=== PATIENT | male | born 1980 | race Caucasian/White ===

== ENCOUNTER 2023-03-27 21:25 | Emergency (ER) | payer BC, MEDICAID, SELFPAY ==
[2023-03-27 21:32] VITALS: BP 139/88; PULSE 97; RESP 18; TEMP 36.6; O2SAT 96; BMI 19.2
--- NOTE | 2023-03-27 21:51 | ED.C_ITS ---
Documented by User: Juve Melendez MD 03/27/23 21:55 HPI - Psych General: Stated Complaint: withdrawl/ MHE Time Seen by Provider: 03/27/23 21:39 Source: patient Mode of arrival: ambulatory Limitations: no limitations History of Present Illness: 42-year-old male states he has been on a 3-day meth binge states he is also used some acid states he has not used any today but has been having some hallucinations and has been feeling extremely suicidal states he had a gun to his mouth earlier and states he does have a plan of shooting himself to kill himself he states that this evening he became scared that he was going to do it and wants to get help. Associated symptoms: Reports auditory hallucinations, depression and suicidal ideation Review of Systems Const: Denies: fever(s), chills, body aches or change in appetite Eyes: Denies: blurry vision or eye discomfort ENMT: Denies: throat pain or dental pain Card: Denies: chest pain Resp: Denies: dyspnea GI: Denies: abdominal pain, nausea, vomiting or diarrhea Musc: Denies: neck pain or back pain Skin/Breast: Denies: rash Neuro: Denies: headache(s) Psych: Reports: depression, auditory hallucinations and suicidal ideation Physical Exam Const: COMMON NORMALS: no acute distress, patient oriented x3 and healthy appearing HENMT: COMMON NORMALS: normocephalic and atraumatic HEAD & SCALP: normocephalic and atraumatic Eye: COMMON NORMALS: Equal, round and reactive pupils present and EOMs intact bilaterally PUPIL: Yes Equal, round and reactive pupils present Neck/C-Spine: COMMON NORMALS: full ROM and supple Chest: COMMONS NORMALS: normal inspection of the chest Resp: COMMON NORMALS: normal respiratory effort Cardio: COMMON NORMALS: regular rate, regular rhythm and No murmurs present (Cardio) RATE: regular rate RHYTHM: regular rhythm Extremity: COMMON NORMALS: normal to inspection and full ROM Neuro: COMMON NORMALS: patient oriented x3, moves all extremities and no focal motor deficits Psych: COMMON NORMALS: mental status grossly normal and cooperative MOOD & AFFECT: Yes depressed mood THOUGHT CONTENT: Yes Suicidality present Skin: COMMON NORMALS: no rashes or lesions noted and no wounds GENERAL SKIN EXAM: no rashes or lesions noted Course Vital Signs: Vital signs: Vital Signs Temperature 97.8 F 03/27/23 21:32 Pulse Rate 97 03/27/23 21:32 Respiratory Rate 16 03/28/23 04:00 Blood Pressure 123/85 03/27/23 22:10 Pulse Oximetry 97 03/27/23 22:17 Oxygen Delivery Me thod Room Air 03/27/23 22:17 MDM - Psych Medical Decision Making Patient presents here with suicidal ideation along with hallucinations and drug use. He is actively suicidal he is placed under 96-hour hold do not have any bed availability here we will attempt to transfer. Lab Data 03/27/23 21:59 03/27/23 21:59 Laboratory Results WBC 12.36 10^3/uL (3.29-11.43) H 03/27/23 21:59 RBC 4.29 10^6/uL (3.85-5.65) 03/27/23 21:59 Hgb 14.20 g/dL (11.27-16.99) 03/27/23 21:59 Hct 40.8 % (37-53) 03/27/23 21:59 MCV 95.1 fl (82-101) 03/27/23 21:59 MCH 33.1 pg (27-33) H 03/27/23 21:59 MCHC 34.8 g/dL (30-55) 03/27/23 21:59 RDW 14.3 % (12.1-15.1) 03/27/23 21:59 Plt Count 261 10^3/cmm (157-399) 03/27/23 21:59 MPV 9.1 fL (7.4-10.4) 03/27/23 21:59 Neut % (Auto) 69.2 % 03/27/23 21:59 Lymph % (Auto) 20.1 % 03/27/23 21:59 Bledsoe % (Auto) 9.3 % 03/27/23 21:59 Eos % (Auto) 0.7 % 03/27/23 21:59 Baso % (Auto) 0.2 % 03/27/23 21:59 Neut # (Auto) 8.55 10^3/uL (1.8-7.7) H 03/27/23 21:59 Lymph # (Auto) 2.5 10^3/uL (0.8-4.8) 03/27/23 21:59 Bledsoe # (Auto) 1.2 10^3/uL (0.2-0.9) H 03/27/23 21:59 Eos # (Auto) 0.1 10^3/uL (0.0-0.8) 03/27/23 21:59 Baso # (Auto) 0.0 10^3/uL (0.0-0.1) 03/27/23 21:59 Nucleated RBC % (auto) 0 % 03/27/23 21:59 Nucleated RBCs # 0.0 /100WBC 03/27/23 21:59 Sodium 137 mmol/L (136-145) 03/27/23 21:59 Potassium 3.7 mmol/L (3.5-5.1) 03/27/23 21:59 Chloride 101 mmol/L (98-107) 03/27/23 21:59 Carbon Dioxide 23 mmol/L (22-29) 03/27/23 21:59 Anion Gap 16.7 (5-19) 03/27/23 21:59 BUN 24 mg/dL (6-20) H 03/27/23 21:59 Creatinine 0.9 mg/dL (0.7-1.2) 03/27/23 21:59 GFR Calculation 93.0 mL/min (90-130) 03/27/23 21:59 Glucose 98 mg/dL (65-115) 03/27/23 21:59 Calculated Osmolality 288 mOsm/kg (285-295) 03/27/23 21:59 Calcium 9.2 mg/dL (8.5-10.5) 03/27/23 21:59 Total Bilirubin 1.3 mg/dL (0.15-1.2) H 03/28/23 02:35 Direct Bilirubin 0.30 mg/dL (0.00-0.30) 03/28/23 02:35 AST 416 U/L (0-40) H 03/28/23 02:35 ALT 135 U/L (0-41) H 03/28/23 02:35 Alkaline Phosphatase 68 U/L (40-130) 03/28/23 02:35 Total Protein 7.2 g/dL (6.6-8.7) 03/28/23 02:35 Albumin 4.0 g/dL (3.5-5.2) 03/28/23 02:35 Globulin 3.2 g/dL (1.3-4.6) 03/28/23 02:35 Salicylates 0.6 mg/dL (3-10) L 03/27/23 21:59 Urine Opiates Screen Negative ng/mL (Negative) 03/27/23 22:08 Acetaminophen < 5.0 ug/mL (10-30) L 03/27/23 21:59 Ur Barbiturates Screen Negative ng/mL (Negative) 03/27/23 22:08 Ur Phencyclidine Scrn Negative ng/mL (Negative) 03/27/23 22:08 Ur Amphetamines Screen Positive ng/mL (Negative) H 03/27/23 22:08 U Benzodiazepines Scrn Negative ng/mL (Negative) 03/27/23 22:08 Urine Cocaine Screen Negative ng/mL (Negative) 03/27/23 22:08 U Marijuana (THC) Screen Positive ng/mL (Negative) H 03/27/23 22:08 Ethyl Alcohol 44 mg/dL (0-10) H 03/27/23 21:59 Hepatitis A IgM Ab Non-reactive (Nonreactive) 03/27/23 21:59 Hep Bs Antigen Non-reactive (Nonreactive) 03/27/23 21:59 Hep B Core IgM Ab Non-reactive (Nonreactive) 03/27/23 21:59 Hepatitis C Antibody Non-reactive (Nonreactive) 03/27/23 21:59 SARS-CoV-2 Ag (Rapid) negative (Negative) 03/27/23 22:41 Discharge Plan Discharge Patient Disposition: Xfer Short-Term Hosp Clinical Impression: Suicidal ideation, Auditory hallucination, Drug abuse Condition: Stable Coding Level of Care Code ED Senior Software Tester for Chg Fwd Documented by User: Campos Haque DO 03/28/23 04:27 HPI - Psych General: Stated Complaint: withdrawl/ MHE Time Seen by Provider: 03/27/23 21:39 Course Vital Signs: Vital signs: Vital Signs Temperature 97.8 F 03/27/23 21:32 Pulse Rate 97 03/27/23 21:32 Respiratory Rate 16 03/28/23 04:00 Blood Pressure 123/85 03/27/23 22:10 Pulse Oximetry 97 03/27/23 22:17 Oxygen Delivery Me thod Room Air 03/27/23 22:17 MDM - Psych Medical Decision Making Patient presents here with suicidal ideation along with hallucinations and drug use. He is actively suicidal he is placed under 96-hour hold do not have any bed availability here we will attempt to transfer. Patient was accepted by Dr. Ling at [facility] in [place]. Patient be transferred by EMS Differential Diagnosis Likely suicidal ideation Medical Records I reviewed the patient's medical records. Lab Data I reviewed the patient's lab results. 03/27/23 21:59 03/27/23 21:59 Laboratory Results WBC 12.36 10^3/uL (3.29-11.43) H 03/27/23 21:59 RBC 4.29 10^6/uL (3.85-5.65) 03/27/23 21:59 Hgb 14.20 g/dL (11.27-16.99) 03/27/23 21:59 Hct 40.8 % (37-53) 03/27/23 21:59 MCV 95.1 fl (82-101) 03/27/23 21:59 MCH 33.1 pg (27-33) H 03/27/23 21:59 MCHC 34.8 g/dL (30-55) 03/27/23 21:59 RDW 14.3 % (12.1-15.1) 03/27/23 21:59 Plt Count 261 10^3/cmm (157-399) 03/27/23 21:59 MPV 9.1 fL (7.4-10.4) 03/27/23 21:59 Neut % (Auto) 69.2 % 03/27/23 21:59 Lymph % (Auto) 20.1 % 03/27/23 21:59 Bledsoe % (Auto) 9.3 % 03/27/23 21:59 Eos % (Auto) 0.7 % 03/27/23 21:59 Baso % (Auto) 0.2 % 03/27/23 21:59 Neut # (Auto) 8.55 10^3/uL (1.8-7.7) H 03/27/23 21:59 Lymph # (Auto) 2.5 10^3/uL (0.8-4.8) 03/27/23 21:59 Bledsoe # (Auto) 1.2 10^3/uL (0.2-0.9) H 03/27/23 21:59 Eos # (Auto) 0.1 10^3/uL (0.0-0.8) 03/27/23 21:59 Baso # (Auto) 0.0 10^3/uL (0.0-0.1) 03/27/23 21:59 Nucleated RBC % (auto) 0 % 03/27/23 21:59 Nucleated RBCs # 0.0 /100WBC 03/27/23 21:59 Sodium 137 mmol/L (136-145) 03/27/23 21:59 Potassium 3.7 mmol/L (3.5-5.1) 03/27/23 21:59 Chloride 101 mmol/L (98-107) 03/27/23 21:59 Carbon Dioxide 23 mmol/L (22-29) 03/27/23 21:59 Anion Gap 16.7 (5-19) 03/27/23 21:59 BUN 24 mg/dL (6-20) H 03/27/23 21:59 Creatinine 0.9 mg/dL (0.7-1.2) 03/27/23 21:59 GFR Calculation 93.0 mL/min (90-130) 03/27/23 21:59 Glucose 98 mg/dL (65-115) 03/27/23 21:59 Calculated Osmolality 288 mOsm/kg (285-295) 03/27/23 21:59 Calcium 9.2 mg/dL (8.5-10.5) 03/27/23 21:59 Total Bilirubin 1.3 mg/dL (0.15-1.2) H 03/28/23 02:35 Direct Bilirubin 0.30 mg/dL (0.00-0.30) 03/28/23 02:35 AST 416 U/L (0-40) H 03/28/23 02:35 ALT 135 U/L (0-41) H 03/28/23 02:35 Alkaline Phosphatase 68 U/L (40-130) 03/28/23 02:35 Total Protein 7.2 g/dL (6.6-8.7) 03/28/23 02:35 Albumin 4.0 g/dL (3.5-5.2) 03/28/23 02:35 Globulin 3.2 g/dL (1.3-4.6) 03/28/23 02:35 Salicylates 0.6 mg/dL (3-10) L 03/27/23 21:59 Urine Opiates Screen Negative ng/mL (Negative) 03/27/23 22:08 Acetaminophen < 5.0 ug/mL (10-30) L 03/27/23 21:59 Ur Barbiturates Screen Negative ng/mL (Negative) 03/27/23 22:08 Ur Phencyclidine Scrn Negative ng/mL (Negative) 03/27/23 22:08 Ur Amphetamines Screen Positive ng/mL (Negative) H 03/27/23 22:08 U Benzodiazepines Scrn Negative ng/mL (Negative) 03/27/23 22:08 Urine Cocaine Screen Negative ng/mL (Negative) 03/27/23 22:08 U Marijuana (THC) Screen Positive ng/mL (Negative) H 03/27/23 22:08 Ethyl Alcohol 44 mg/dL (0-10) H 03/27/23 21:59 Hepatitis A IgM Ab Non-reactive (Nonreactive) 03/27/23 21:59 Hep Bs Antigen Non-reactive (Nonreactive) 03/27/23 21:59 Hep B Core IgM Ab Non-reactive (Nonreactive) 03/27/23 21:59 Hepatitis C Antibody Non-reactive (Nonreactive) 03/27/23 21:59 SARS-CoV-2 Ag (Rapid) negative (Negative) 03/27/23 22:41 No radiology studies performed this visit Discharge Plan Discharge Patient Disposition: Xfer Short-Term Hosp Clinical Impression: Suicidal ideation, Auditory hallucination, Drug abuse Condition: Stable Coding Level of Care Code ED Senior Software Tester for Jovon Paz
--- NOTE | 2023-03-27 21:54 | ECG_ITS ---
[facility] Test Date: 2023-03-27 Pat Name: Jag Cope Department: Room: Gender: Male Technology Resource Teacher: : 1980 Requested By: Juve Melendez Order Number: [id number] Parham MD: Beatrice Day M.D. Measurements Intervals [place] Rate: 67 P: 81 [place]: 137 QRS: 90 QRSD: 94 T: 76 QT: 408 QTc: 432 Interpretive Statements SINUS RHYTHM POSSIBLE LEFT ATRIAL ENLARGEMENT [-0.1mV P-WAVE IN V1/V2] INCOMPLETE RIGHT BUNDLE BRANCH BLOCK [90+ ms QRS DURATION, TERMINAL R IN V1/V2, 40+ ms S IN I/aVL/V4/V5/V6] No previous ECG available for comparison Electronically Signed On 03-27-2023 23:09:34 CDT by Beatrice Day M.D. [id number]
--- NOTE | 2023-03-27 22:00 | PC.NURSE ---
96 Hour Hold Pt served copy of 96 Hour Hold Rights by this RN and security. Explained process and admittance, pt was agreeable. All questions answered.
[2023-03-27 22:04] LABS: Basophils % 0.2 %; Eosinophils # 0.1 10^3/uL (0.0-0.8); Eosinophils % 0.7 %; Hematocrit 40.8 % (37-53); Lymphocytes # 2.5 10^3/uL (0.8-4.8); Lymphocytes % 20.1 %; Mean Corpuscular HGB Conc 34.8 g/dL (30-55); Mean Corpuscular Hemoglobin 33.1 pg (27-33); Mean Corpuscular Volume 95.1 fl (82-101); Mean Platelet Volume 9.1 fL (7.4-10.4); Monocytes # 1.2 10^3/uL (0.2-0.9); Monocytes % 9.3 %; Neutrophils # 8.55 10^3/uL (1.8-7.7); Neutrophils % 69.2 %; Nucleated Red Blood Cells % 0 %; Platelet Count 261 10^3/cmm (157-399); Red Blood Count 4.29 10^6/uL (3.85-5.65); Red Cell Distribution Width 14.3 % (12.1-15.1); White Blood Count 12.36 10^3/uL (3.29-11.43)
[2023-03-27 22:10] VITALS: BP 123/85; O2SAT 97
[2023-03-27 22:17] VITALS: RESP 16; O2SAT 97
--- NOTE | 2023-03-27 22:18 | PC.NURSE ---
pt placed in paper scrubs, belongings removed and placed in drawer 8 in cabinet outside room 8. PSA with pt.
[2023-03-27 22:35] LABS: Alanine Aminotransferase 136 U/L (0-41); Albumin Level 4.6 g/dL (3.5-5.2); Alcohol Level 44 mg/dL (0-10); Alkaline Phosphatase 71 U/L (40-130); Anion Gap 16.7 (5-19); Aspartate Amino Transferase 469 U/L (0-40); Blood Urea Nitrogen 24 mg/dL (6-20); Calcium 9.2 mg/dL (8.5-10.5); Carbon Dioxide 23 mmol/L (22-29); Chloride 101 mmol/L (98-107); Creatinine Clr Calc Pharmacy 103.9485; Glucose 98 mg/dL (65-115); Osmolality Calculated 288 mOsm/kg (285-295); Potassium 3.7 mmol/L (3.5-5.1); Salicylate 0.6 mg/dL (3-10); Sodium 137 mmol/L (136-145); Total Bilirubin 1.6 mg/dL (0.15-1.2); Total Protein 7.6 g/dL (6.6-8.7)
[2023-03-27 22:37] LABS: Acetaminophen < 5.0 ug/mL (10-30)
[2023-03-27 22:38] LABS: Amphetamines Screen Urine Positive (Negative); Barbiturates Screen Urine Negative (Negative); Benzodiazepines Screen Urine Negative (Negative); Cocaine Screen Urine Negative (Negative); Opiate Screen Urine Negative (Negative); PCP Screen Urine Negative (Negative); THC Screen Urine Positive (Negative)
[2023-03-27 23:06] LABS: SARS Covid-2 Antigen negative (Negative)
[2023-03-28] VITALS: RESP 18
--- NOTE | 2023-03-28 01:29 | PC.NURSE ---
this nurse spoke with [facility] regarding pt's EKG and elevated liver enzymes. this nurse spoke with Dr. Haque and Dr. Haque states pt is medically cleared and fit for placement. [facility] aware and to call back after speaking with physician possibly admitting pt.
[2023-03-28 02:22] LABS: Hepatitis A Antibody IgM Non-Reactive (Nonreactive); Hepatitis B Core IgM Non-Reactive (Nonreactive); Hepatitis B Surface Antigen Non-Reactive (Nonreactive); Hepatitis C Virus Antibody Non-Reactive (Nonreactive)
[2023-03-28 03:00] LABS: Alanine Aminotransferase 135 U/L (0-41); Alkaline Phosphatase 68 U/L (40-130); Aspartate Amino Transferase 416 U/L (0-40); Globulin 3.2 g/dL (1.3-4.6); Total Bilirubin 1.3 mg/dL (0.15-1.2); Total Protein 7.2 g/dL (6.6-8.7)
[2023-03-28 04:00] VITALS: RESP 16
--- NOTE | 2023-03-28 04:13 | PC.NURSE ---
this nurse spoke with machelle perry regarding elevated liver enzymes and the redraw labs, machelle perry to speak with provider regarding pt and will call back with update.
--- NOTE | 2023-03-28 04:16 | PC.NURSE ---
[facility] accepted pt, this nurse notified machelle perry of update.
--- NOTE | 2023-03-28 04:17 | PC.NURSE ---
pt information was faxed to following facilites for transfer: -[facility] -[facility]: [facility] -[facility] -[facility] in [place] accepted pt. notified facility that transfer will be after 0700
--- NOTE | 2023-03-28 04:43 | PC.NURSE ---
this nurse called report to Nataly Ochoa, nurse at [facility]. informed Nataly that transport would be approx [phone]
[2023-03-28 06:00] VITALS: BP 106/61; PULSE 59; RESP 18; O2SAT 98
--- NOTE | 2023-03-28 06:40 | PC.NURSE ---
this nurse updated pt on status of transfer, pt signed transfer papers. had no further questions.
--- NOTE | 2023-03-28 06:42 | PC.NURSE ---
this nurse called [facility] in [place], [place], spoke with Nataly and updated Nataly on status of pt and transfer updates.
== END 2023-03-28 08:33 | disposition short-term general hospital (02) ==
PROVIDERS: Emergency Medicine; Emergency Provider Emergency Medicine
DX: R45.851 Suicidal ideations (principal); R44.0 Auditory hallucinations; F15.10 Other stimulant abuse, uncomplicated; F16.10 Hallucinogen abuse, uncomplicated; Z11.52 Encounter for screening for COVID-19
CPT/HCPCS: 36415; 80053; 80074; 80076; 80306; 80307; 85025; 87426; 93005; 99284

== ENCOUNTER 2024-09-07 16:19 | Emergency (ER) | payer BC, MEDICAID, SELFPAY ==
[2024-09-07 16:22] VITALS: BP 134/99; PULSE 75; RESP 16; TEMP 36.7; O2SAT 100
--- NOTE | 2024-09-07 16:27 | XRR_ITS ---
PROCEDURE INFORMATION: Exam: XR Right Ankle Exam date and time: 09/07/2024 4:36 PM Age: 43 years old Clinical indication: Right; RT ankle pain post fall TECHNIQUE: Imaging protocol: Radiologic exam of the right ankle. Views: 3 or more views. COMPARISON: No relevant prior studies available. FINDINGS: Bones/joints: No acute fracture or dislocation. Joint spaces are preserved. Symmetric ankle mortise. Small anterior joint effusion. Soft tissues: Mild lateral soft tissue swelling. XR/XR ankle RT min 3V* [id number] IMPRESSION: 1. No acute osseous findings. 2. Mild lateral soft tissue swelling and small anterior joint effusion.
--- NOTE | 2024-09-07 16:42 | W.ED.EXTPRO ---
HPI - Extremity Problem General: Chief complaint: Extremity Injury, Lower Stated complaint: right ankle injury Time Seen by Provider: 09/07/24 16:27 Source: patient Mode of arrival: wheelchair Limitations: no limitations History of Present Illness: 43yo male presents with right ankle pain and swelling after rolling his ankle last night when he was trying to get his dog out of the rain. Patient reports that he did hear/feel 3 pops in the ankle. Patient states that he is able to bear weight, but does have significant pain. Patient denies any previous fracture or known injury to the right ankle. He denies any other injury or concern at this time. Associated symptoms: Deny fever(s) Related Data Home Medications ?Medication ?Instructions ?Recorded ?Confirmed No Known Home Medications 03/28/23 03/28/23 Allergies Allergy/AdvReac Type Severity Reaction Status Date / Time No Known Allergies Allergy Verified 09/07/24 16:25 Review of Systems Const: Denies: fever(s), chills or body aches Musc: Reports: joint pain (Right ankle), joint swelling (Right ankle) and limited range of motion (Right ankle) Physical Exam Const: COMMON NORMALS: no acute distress, patient oriented x3 and alert GENERAL APPEARANCE: cooperative ORIENTATION/CONSCIOUSNESS: Yes awake OTHER: Patient is sitting upright on the stretcher in no acute distress. He is able to give history with no difficulty. He is interactive with exam appropriately. No family is at bedside at time of exam HENMT: COMMON NORMALS: normocephalic HEAD & SCALP: normocephalic Neck/C-Spine: COMMON NORMALS: full ROM Chest: CHEST: Yes Symmetrical chest wall rise Resp: COMMON NORMALS: normal respiratory effort EFFORT & INSPECTION: Yes able to speak in complete sentences and Yes symmetric chest movement Extremity: RIGHT LOWER EXTREMITY: Yes foot & digits Right ankle: Yes inspection (Swelling noted to the lateral malleoli are area), Yes palpation (Kavon palpation lateral malleolus) and Yes ROM (Increased pain with dorsi flexion and plantarflexion) Neuro: COMMON NORMALS: patient oriented x3 SENSORIUM/ORIENTATION: Yes alert Psych: COMMON NORMALS: cooperative Course Vital Signs: Vital signs: Vital Signs Temperature 98.1 F 09/07/24 16:22 Pulse Rate 75 09/07/24 16:22 Respiratory Rate 16 09/07/24 16:22 Blood Pressure 134/99 09/07/24 16:22 Pulse Oximetry 100 09/07/24 16:22 Oxygen Delivery Me thod Room Air 09/07/24 16:22 MDM - Extremity (Nontraumatic) Medical Decision Making 43yo male presents with right ankle pain and swelling after rolling his ankle last night when he was trying to get his dog out of the rain. Patient reports that he did hear/feel 3 pops in the ankle. Patient states that he is able to bear weight, but does have significant pain. Patient denies any previous fracture or known injury to the right ankle. He denies any other injury or concern at this time. Patient is nontoxic in appearance. Vital signs are stable. Will proceed with x-ray imaging to evaluate for possible fracture. No acute bony abnormalities noted on the x-ray, mild lateral soft tissue swelling and small anterior joint effusion noted. Discussed findings with patient, likely a sprain. Patient did receive ketorolac while in the emergency department. Elastic wrap was applied by nursing. Recommend rest, ice, elevation, and range of motion exercises. Advised to slowly increase his activity level as he is able to tolerate. Recommend follow-up with primary care, call in a few days with an update of symptoms and to discuss a recheck. Return precautions provided. Patient states understanding and has no further questions or concerns at this time. Lab Data Radiology Impressions Ankle X-Ray 09/07/24 16:27 IMPRESSION: 1. No acute osseous findings. 2. Mild lateral soft tissue swelling and small anterior joint effusion. All radiology interpretation(s) finalized by discharge Discharge Plan Discharge Patient Disposition: Home Clinical Impression: Right ankle sprain Qualifiers: Encounter type: initial encounter Involved ligament of ankle: unspecified ligament Qualified Code(s): S93.401A - Sprain of unspecified ligament of right ankle, initial encounter Condition: Stable Prescriptions: No Action No Known Home Medications Discharge Orders: Discharge ED (Routine); Ordered 09/07/24 Ordered By: Gabo Ball Discharge Diet: Usual diet Discharge Activity: Increase activity as tolerated Patient Instructions: Ankle Sprain (ED) Activity Restrictions/Additional Instructions: Use [id number] ibuprofen to help with pain and swelling. Your dose would be 800 mg (4 tablets of [id number] ibuprofen). Rest, ice, and elevation of the ankle will help with the pain and swelling After 1 to 2 days, begin range of motion exercises. Act like you are big toe is a pen and draw your ABCs Follow-up with your doctor, call in 3 to 4 days with an update of symptoms and to discuss a recheck Return to the emergency department if any rapid worsening symptoms, further injury, and as needed Print Language: Hebrew Coding Level of Care Code ED Pizza Driver for Jovon Paz
[2024-09-07] MEDS: ketorolac 10 mg Tablet PO (17:48)
== END 2024-09-07 17:48 | disposition home or self-care (01) ==
PROVIDERS: Emergency Provider Nurse Practitioner
DX: S93.401A Sprain of unspecified ligament of right ankle, initial encounter (principal); X58.XXXA Exposure to other specified factors, initial encounter
CPT/HCPCS: 73610; 99283; E0114; J9999